=== PATIENT | female | born 1935 | race Two or more races ===

== ENCOUNTER 2018-07-09 13:30 | Emergency (ER) | payer OTHER ==
[2018-07-09 13:39] VITALS: BP 139/46; PULSE 68; TEMP 98.1; BMI 34.3
[2018-07-09] MEDS ORDERED: CLINDAMYCIN IVPB 300 MG in DEXTROSE 5%-WATER - 48 ML IVPB ONE (16:00)
--- NOTE | 2018-07-09 16:34 | PDOC ---
History of Present Illness - General Chief Complaint: Wound Stated Complaint: LEG WOUND Time Seen by Provider: 07/09/18 15:40 History Source: Patient, Other (daughter) Exam Limitations: Language Barrier (haitian) - History of Present Illness Initial Comments: 07/09/18 15:34 82 year female brought in by daughter and son-in-law for evaluation of right lower extremity redness swelling and pain. As per daughter patient had tripped landing on her right foot sustaining a sprain of her right ankle which was confirmed at [facility] after receiving an x-ray negative for fractures. Patient initially was wearing an Robson wrap but stopped wearing it about a week and half ago secondary to pain. Patient is not a diabetic but approximately 2 years ago had cellulitis to the right lower leg requiring surgery performed by Dr. Posadas Timing/Duration: constant (2 weeks) Severity: mild Associated Symptoms: reports: denies symptoms Past History - Travel Traveled outside of the country in the last 30 days: No - Past Medical History Allergies/Adverse Reactions: Allergies Allergy/AdvReac Type Severity Reaction Status Date / Time red dye Allergy Rash Verified 07/09/18 13:39 Home Medications: Ambulatory Orders Doxazosin Mesylate 2 mg PO DAILY 02/21/18 Famotidine 20 mg PO DAILY 02/21/18 Flovent Diskus 110 mcg IH BID 02/21/18 Losartan Potassium 100 mg PO DAILY 02/21/18 Methimazole 5 mg PO DAILY 02/21/18 Torsemide 10 mg PO DAILY 02/21/18 Vitamin D3 2,000 iu PO DAILY 02/21/18 Clindamycin [Cleocin -] 450 mg PO Q8H #63 capsule 07/09/18 Asthma: Yes COPD: No HTN: Yes Thyroid Disease: Yes - Surgical History GI Surgery: Yes (COLOSTOMY) - Suicide/Smoking/Psychosocial Hx Smoking History: Never smoked Patient Lives Alone: No Review of Systems - Review of Systems Able to Perform ROS?: No Constitutional: No: Symptoms Reported HEENTM: No: Symptoms Reported Respiratory: No: Symptoms reported Cardiac (ROS): No: Symptoms Reported Musculoskeletal: Yes: Muscle Pain (right lower leg and foot generally) Integumentary: Yes: Erythema, Other (swelling) Neurological: No: Symptoms reported Hematologic/Lymphatic: No: Symptoms Reported *Physical Exam - Vital Signs Last Vital Signs Temp Pulse Resp BP Pulse Ox 98.1 F 68 18 139/46 99 07/09/18 13:34 07/09/18 13:34 07/09/18 13:34 07/09/18 13:34 07/09/18 13:34 - Physical Exam General Appearance: Yes: Nourished, Appropriately Dressed. No: Apparent Distress HEENT: negative: Pale Conjunctivae Neck: positive: Supple Respiratory/Chest: positive: Lungs Clear, Normal Breath Sounds. negative: Respiratory Distress, Accessory Muscle Use Cardiovascular: positive: Regular Rhythm, Regular Rate. negative: Murmur Vascular Pulses: Dorsalis-Pedis (R): 2+ Extremity: positive: Pedal Edema (2+ pitting over dorsal aspect of right foot), Erythema (over the anterior aspect of the distal tib-fib extending to right foot dorsally) Integumentary: positive: Warm Neurologic: positive: Normal Mood/Affect, Motor Strength 03/01 ED Treatment Course - LABORATORY CBC & Chemistry Diagram: 07/09/18 19:00 07/09/18 19:00 - RADIOLOGY Radiology Studies Ordered: Category Date Time Status DUPLEX VASCUL US-1 LEG [US] Stat Ultrasound 07/09/18 15:59 Ordered Medical Decision Making - Medical Decision Making 07/09/18 16:07 Patient brought in for evaluation of redness swelling and tenderness over the past 2 weeks after spraining her ankle. Patient history of cellulitis to the right lower extremity and so is brought in for family for evaluation. Patient has no other complaints except the above symptoms. Patient consented for cellulitis versus DVT. Patient ordered for labs, IV Clinda and duplex of the lower extremity. 07/09/18 17:40 Duplex shows no DVT identified in the right leg. *DC/Admit/Observation/Transfer Diagnosis at time of Disposition: Cellulitis - Discharge Dispostion Disposition: HOME Condition at time of disposition: Stable - Prescriptions Prescriptions: Clindamycin [Cleocin -] 450 mg PO Q8H #63 capsule - Referrals Referrals: Dex Anne MD [Staff Physician] - Alec Pink MD [Staff Physician] - Cb Posadas MD [Staff Physician] - Vanna Ladd [Primary Care Provider] - - Patient Instructions Printed Discharge Instructions: DI for Cellulitis -- Adult Additional Instructions: Take clindamycin 450mg 3 times a day until all medications are finished- EVEN IF YOU FEEL BETTER. Take Tylenol or motrin as needed for fevers or pain. Make an appointment with Dr. Posadas for re-evaluation if symptoms do not improve within 5 days. return to ED for worsening pain, fevers, chills, streaking up your leg or any other concerns. - Post Discharge Activity
[2018-07-09] MEDS ORDERED: CLINDAMYCIN 600MG PREMIX IVPB 600 MG/50 ML BAG IVPB ONE ×2 (18:51→18:52)
[2018-07-09 19:18] LABS: BASO % 0.5 % (0-2.0); EOS % 1.4 % (0-4.5); HEMATOCRIT 37.3 % (32.4-45.2); HEMOGLOBIN 12.5 GM/dL (10.7-15.3); LYMPH % 24.7 % (8-40); MCHC 33.5 g/dl (32.0-36.0); MEAN CELL VOLUME 89.6 fl (80-96); MEAN PLT VOLUME 9.6 fl (7.5-11.1); MONO % 9.6 % (3.8-10.2); NEUT % 63.8 % (42.8-82.8); PLATELET COUNT 164 K/MM3 (134-434); RBC 4.16 M/mm3 (3.60-5.2); RDW 14.1 % (11.6-15.6); WHITE BLOOD COUNT 4.2 K/mm3 (4.0-10.0)
--- NOTE | 2018-07-09 19:18 | PDOC ---
*Physical Exam - Vital Signs Last Vital Signs Temp Pulse Resp BP Pulse Ox 98.1 F 68 18 139/46 99 07/09/18 13:34 07/09/18 13:34 07/09/18 13:34 07/09/18 13:34 07/09/18 13:34 - Physical Exam General Appearance: Yes: Appropriately Dressed. No: Apparent Distress HEENT: positive: Normal ENT Inspection Neck: positive: Trachea midline, Supple Respiratory/Chest: positive: Lungs Clear, Normal Breath Sounds. negative: Respiratory Distress, Accessory Muscle Use Cardiovascular: positive: Regular Rhythm, Regular Rate, Edema (right lower extremity). negative: Murmur Vascular Pulses: Dorsalis-Pedis (R): 2+, Doralis-Pedis (L): 2+ Gastrointestinal/Abdominal: positive: Normal Bowel Sounds, Soft. negative: Tender Musculoskeletal: positive: Normal Inspection. negative: CVA Tenderness Extremity: positive: Normal Capillary Refill, Normal Range of Motion. negative : Normal Inspection (swelling and erythema present to anterior right lower leg and ankle. No tenderness present.) Integumentary: positive: Dry, Warm, Other (swelling and erythema present to anterior right lower leg and ankle. No tenderness present.) Neurologic: positive: Alert, Normal Response ED Treatment Course - LABORATORY CBC & Chemistry Diagram: 07/09/18 19:00 07/09/18 19:00 - Medications Given in the ED: ED Medications Discontinued Medications Generic Name Dose Route Start Last Admin Trade Name Freq PRN Reason Stop Dose Admin Clindamycin Phosphate 300 mg/ 50 mls @ 100 mls/hr 07/09/18 16:00 07/09/18 19: 16 Dextrose IVPB 07/09/18 16:29 Not Given ONCE ONE Protocol Progress Note - Progress Note Progress Note: Received signout from MICHELLE Rachel. Briefly this is an 82-year-old woman was brought to the emergency department by her daughter for right lower extremity redness and swelling for the past 2 weeks. Daughter states that patient tripped landing on her right foot spraining her right ankle and was evaluated at another hospital for which x-rays were negative. Patient is here for reevaluation of erythema and pain in the right fourth toe. DVT studies performed are negative. Patient is pending labs and clindamycin IV. Disposition pending. Medical Decision Making - Medical Decision Making 07/09/18 20:46 Laboratory testing is unremarkable. I will discharge the patient home with clindamycin 450 mg 3 times a day for the next 7 days. Patient is requesting referrals for podiatry and orthopedics for reevaluation of her orthopedic injury sustained 3 weeks ago. All results have been explained to the son and the patient verbalizes understanding of discharge instructions and are negative agreement with the current plan. *DC/Admit/Observation/Transfer Diagnosis at time of Disposition: Cellulitis Qualifiers: Site of cellulitis: extremity Site of cellulitis of extremity: lower extremity Laterality: right Qualified Code(s): L03.115 - Cellulitis of right lower limb - Discharge Dispostion Disposition: HOME Condition at time of disposition: Stable Decision to Admit order: No - Prescriptions Prescriptions: Clindamycin [Cleocin -] 450 mg PO Q8H #63 capsule - Referrals Referrals: Vanna Ladd [Primary Care Provider] - Cb Posadas MD [Staff Physician] - Alec Pink MD [Staff Physician] - Dex Anne MD [Staff Physician] - - Patient Instructions Printed Discharge Instructions: DI for Cellulitis -- Adult Additional Instructions: Take clindamycin 450mg 3 times a day until all medications are finished- EVEN IF YOU FEEL BETTER. Take Tylenol or motrin as needed for fevers or pain. Make an appointment with Dr. Posadas for re-evaluation if symptoms do not improve within 5 days. return to ED for worsening pain, fevers, chills, streaking up your leg or any other concerns. - Post Discharge Activity
[2018-07-09 19:43] LABS: ANION GAP 8 MMOL/L (8-16); BILIRUBIN,TOTAL 0.4 mg/dL (0.2-1.0); BLOOD UREA NITROGEN 26 mg/dL (7-18); CALCIUM 9.3 mg/dL (8.5-10.1); CHLORIDE 104 mmol/L (98-107); CO2 30 mmol/L (21-32); CREATININE 0.7 mg/dL (0.55-1.02); GLUCOSE,RANDOM 94 mg/dL (74-106); SGOT/AST 17 U/L (15-37); SGPT/ALT 18 U/L (13-61); SODIUM 142 mmol/L (136-145); TOT PROT 6.8 g/dl (6.4-8.2)
[2018-07-09 19:44] LABS: ALK PHOS 85 U/L (45-117)
== END 2018-07-09 20:59 | disposition home or self-care (01) ==
LOC: JER 13:30
DX: L03.115 Cellulitis of right lower limb (principal)
CPT/HCPCS: 36415; 80053; 83605; 85025; 87040; 93971-TC; 96365; 99282-25